=== PATIENT | female | born 1995 | race Caucasian/White ===

== ENCOUNTER → 2024-09-11 08:41 | Outpatient (CLI) | payer OTHER, SELFPAY ==
[2024-09-11 09:24] LABS: Influenza A - CEPHEID Flu A NEGATIVE (NEGATIVE); Influenza B - CEPHEID Flu B NEGATIVE (NEGATIVE); Respiratory Syncytial Virus Negative (Negative)
[2024-09-11 09:26] LABS: COVID-19 CEPHEID 4-PLEX PCR Negative (Negative)
== END ==
PROVIDERS: PCP Family Medicine; Visit Provider Registered Nurse
DX: R05.1 Acute cough (principal)
CPT/HCPCS: 0241U

== ENCOUNTER → 2024-09-11 08:47 | Outpatient (CLI) | payer OTHER, SELFPAY ==
--- NOTE | 2024-09-11 08:48 | DI.RAD.S_ITS ---
PROCEDURE: XR CHEST 2V INDICATIONS: Wheezing TECHNIQUE: 2 views of the chest were acquired. COMPARISON: None. FINDINGS: Surgical changes and devices: None. Lungs and pleura: Moderate right pleural effusion with right basilar atelectasis or consolidation. Left lung is clear. No pneumothorax. Mediastinum: Mediastinal contours are normal. Heart size is normal. Bones and chest wall: No suspicious bony abnormalities. Soft tissues appear unremarkable. IMPRESSION: Moderate right pleural effusion with right basilar atelectasis or consolidation. Approved by: Bart Trejo M.D. on 09/11/2024 at 9:02
== END ==
PROVIDERS: PCP Family Medicine; Referring Provider Registered Nurse; Visit Provider Registered Nurse
DX: J90 Pleural effusion, not elsewhere classified (principal); R06.2 Wheezing; R05.1 Acute cough
CPT/HCPCS: 0241U; 71046

== ENCOUNTER 2024-09-11 09:02 | Inpatient (IN) | payer OTHER, SELFPAY ==
[2024-09-11] VITALS (17 sets, daily range): BP systolic 111–134; BP diastolic 58–82; PULSE 96–110; RESP 12–22; TEMP 36.7–37.4; O2SAT 94–99; BMI 21.6
--- NOTE | 2024-09-11 09:47 | EKG_ITS ---
[address] [address] Test Date: 2024-09-11 Pat Name: Jerri Ruffin Department: [facility] Room: Gender: Female [employer]: junior : 1995 Requested By: Order Number: [id number] Reading MD: Vincent Lino Measurements Intervals [place] Rate: 100 P: 66 SD: 152 QRS: 78 QRSD: 84 T: 40 QT: 344 QTc: 443 Interpretive Statements Normal sinus rhythm Possible Lateral infarct , age undetermined Electronically Signed On 09-17-2024 18:54:05 PDT by Vincent Lino
[2024-09-11 09:54] LABS: Add Manual Diff / Slide Review NO; Basophils Absolute Auto 0 /uL (0-100); Basophils Percent Auto 0.1 % (0-2); Eosinophils Absolute Auto 100 /uL (0-450); Hematocrit 36.1 % (36-46); Hemoglobin 12.1 g/dL (12.0-16.0); Lymphocytes Absolute Auto 400 /uL (1100-4500); Lymphocytes Percent Auto 6.7 % (25-40); Mean Corpuscular HGB Conc 33.6 % (30-36); Mean Corpuscular Hemoglobin 29.4 PG (26-34); Mean Corpuscular Volume 87.5 fL (80-100); Monocytes Absolute Auto 600 /uL (0-900); Monocytes Percent Auto 9.6 % (3-14); Neutrophils Absolute Auto 5500 /uL (1500-7000); Neutrophils Percent Auto 82.6 % (50-75); Platelet Count 246 X10^3/uL (150-400); Red Blood Cell Count 4.12 X10^6/uL (4.0-5.2); Red Cell Distribution Width 12.9 % (11.6-14.8); White Blood Cell Count 6.6 X10^3/uL (4.5-11.0)
--- NOTE | 2024-09-11 09:55 | PC.NURSE ---
Pt reports initially feeling sob when laying back at night but states this gets better. Diminished lung sounds on right. upper left lobe crackles? Pt reports she has been sick x1 week. States she does not think she has been around anyone sick. Pt reprots she felt feverish on Tuesday.
[2024-09-11 09:59] LABS: Alanine Aminotransferase 24 IU/L (<35); Albumin 4.1 g/dL (3.5-5.0); Albumin Globulin Ratio 1.2 (1.0-2.8); Alkaline Phosphatase 36 U/L (38-126); Aspartate Aminotransferase 36 IU/L (14-36); Bilirubin Total 0.5 mg/dL (0.2-1.3); Blood Urea Nitrogen 12 mg/dL (7-17); Carbon Dioxide 25 mmol/L (22-32); Chloride 102 mmol/L (98-107); Estimated Glomerular Filt Rate > 60 mL/min (>60); Globulin 3.4 g/dL (1.7-4.1); Glucose 102 mg/dL (70-100); HEMOLYSIS < 15 (0-50); Potassium 4.6 mmol/L (3.4-5.1); Prothrombin Time 11.5 SECONDS (9.4-12.5); Sodium 138 mmol/L (137-145); Total Protein 7.5 g/dL (6.3-8.2)
[2024-09-11 10:11] LABS: NT-proBNP (BNP-Adult 18+) 40 pg/mL (<125); Troponin I < 0.012 ng/mL (0.01-0.034)
--- NOTE | 2024-09-11 10:23 | DI.CT.S_ITS ---
PROCEDURE: CT ANGIO CHEST PE PROTOCOL INDICATIONS: chest pain, R pleural effusion TECHNIQUE: After the administration of intravenous contrast, 2 mm thick sections acquired from the pulmonary apices to the posterior costophrenic angles. 3-dimensional maximum intensity projection (MIP) coronal and sagittal reformats were then acquired through the thorax. For radiation dose reduction, the following was used: automated exposure control, adjustment of mA and/or kV according to patient size. COMPARISON: [facility], CR, XR CHEST 2V, 09/11/2024, 8:44. FINDINGS: Image quality: Diagnostic. Pulmonary arteries: Pulmonary arteries are normal in size, and demonstrate no intraluminal filling defects to suggest central pulmonary embolism. Lower Neck: No enlarged lymph nodes. Thyroid: No thyroid nodules which require sonographic follow up, per consensus guidelines. Axillae: No enlarged lymph nodes. Chest Wall: Unremarkable. Bones: Unremarkable. Lungs and Pleura: Dense consolidations in the right middle and lower lobes. Trace pleural fluid. Left lung is clear. No suspicious pulmonary nodule. Heart: Heart size is normal. No pericardial effusion. Thoracic Vessels: No aortic aneurysm. Mediastinum and Pretty: No enlarged lymph nodes. Esophagus: No wall thickening. No hiatal hernia. Upper Abdomen: Visualized upper abdomen solid organs and bowel loops appear normal. IMPRESSION: 1. No acute pulmonary embolus. 2. Large dense consolidations in the right middle and lower lobes are suspicious for pneumonia. Trace parapneumonic effusion. Recommend radiographic follow-up to resolution. Approved by: Bart Trejo M.D. on 09/11/2024 at 11:12
[2024-09-11 11:15] LABS: Bacteria Urine Occasional (0-1); Culture Indicated Urine Cult Not Indicated; RBC Urine 0-1/HPF (0-5/HPF); Squamous Epithelial Cell Urine None Seen (0-5/HPF); Urine Volume 10mL (spun); WBC Urine 0-1/HPF (0-5/HPF)
[2024-09-11] MEDS: AZITHROMYCIN 250 MG TABLET 500 MG PO (12:02)
[2024-09-11] MEDS: cefTRIAXone 1,000 MG in SODIUM CHLORIDE 0.9% 100 ML 200 MG IV ×2 (12:03→13:23)
--- NOTE | 2024-09-11 12:59 | ED.SOB ---
HPI - SOB/Dyspnea General Chief Complaint: Shortness of Breath/Dyspnea Stated Complaint: SOB , Cough Time Seen by Provider: 09/11/24 10:14 Source: patient Mode of arrival: Family Vehicle History of Present Illness HPI Narrative: 28-year-old female with 10 days duration of cough that is productive, she takes the sputum but did not look at the sputum, does not taste like blood. Increasing shortness of breath. No chest pain. Denies painful or frequent urination. Denies abdominal pain, nausea, vomiting. Does not believe that she would be . No current vaginal bleeding. Related Data Previous Rx's Medication Instructions Recorded albuterol sulfate 90 mcg/actuation 2 puff inhalation Q6H PRN 09/03/24 aerosol inhaler shortness of breath or wheezing #6.7 grams inhalational spacing device #1 ea 09/11/24 (BreatheRite MDI Spacer) Allergies Allergy/AdvReac Type Severity Reaction Status Date / Time No Known Drug Allergies Allergy Verified 09/11/24 08:40 Patient History Social History household members: spouse Smoking Status: Never smoker alcohol intake: current Smoking Status: Never smoker Exam Narrative Exam Narrative: GENERAL: Well-developed patient, in mild distress. HEAD: Atraumatic. Normocephalic. EYES: Pupils equal round and reactive. Extraocular motions intact. No scleral icterus. No injection or drainage. ENT: Nose without bleeding, purulent drainage. Throat without erythema, tonsillar hypertrophy or exudate. Airway patent. NECK: Trachea midline. Non tender CARDIOVASCULAR: Regular rate and rhythm without murmurs, gallops, or rubs. RESPIRATORY: Diminished breath sounds right base. Speaks in full sentences, no retractions. No wheeze. GASTROINTESTINAL: Abdomen soft, non-tender, nondistended. EXTREMITIES: No edema or joint tenderness. BACK: Nontender without deformity or crepitance. No flank tenderness. NEURO: AOx3. Motor functions grossly nonfocal SKIN: No rash or erythema of visible areas Initial Vital Signs Initial Vital Signs: Vital Signs Temperature 98.7 F 09/11/24 09:12 Pulse Rate 110 H 09/11/24 09:12 Respiratory Rate 22 09/11/24 09:12 Blood Pressure 134/82 09/11/24 09:12 Pulse Oximetry 95 09/11/24 09:12 Oxygen Delivery Method Room Air 09/11/24 09:12 Course Orders Ordered: Acetaminophen (Acetaminophen 325 Mg Tablet) 650 mg PO Q6H PRN PRN Reason: Fever/Mild Pain (1-3) Last Admin: 09/11/24 14:56 Dose: 650 mg Documented By: MARY Ceftriaxone Sodium 2,000 mg/ (Sodium Chloride) 100 mls @ 200 mls/hr IV Q24H CAREY Metronidazole (Metronidazole 500 Mg Tablet) 500 mg PO TID CAREY Last Admin: 09/11/24 21:26 Dose: 500 mg Documented By: Admin: 09/11/24 16:38 Dose: 500 mg Documented By: JOSSUEV Naloxone HCl (Naloxone 0.4 Mg/Ml Vial) 0.2 mg IV Q2MIN PRN PRN Reason: Opiate Reversal Ondansetron HCl (Ondansetron 4 Mg/2 Ml Inj) 4 mg IV Q8HR PRN PRN Reason: Nausea And Vomiting Discontinued Medications Azithromycin (Azithromycin 250 Mg Tablet) 500 mg PO NOW ONE Stop: 09/11/24 11:39 Last Admin: 09/11/24 12:02 Dose: 500 mg Documented By: NICOLE Ceftriaxone Sodium 1,000 mg/ (Sodium Chloride) 100 mls @ 200 mls/hr IV NOW ONE Stop: 09/11/24 11:39 Last Infusion: 09/11/24 12:33 Dose: Infused Documented By: Admin: 09/11/24 12:03 Dose: 200 mls/hr Documented By: NICOLE Ceftriaxone Sodium 1,000 mg/ (Sodium Chloride) 100 mls @ 200 mls/hr IV NOW ONE Stop: 09/11/24 13:04 Last Infusion: 09/11/24 14:06 Dose: Infused Documented By: Admin: 09/11/24 13:23 Dose: 200 mls/hr Documented By: NICOLE Sodium Chloride (Normal Saline 0.9%) 1,000 mls @ 75 mls/hr IV CONT CAREY Last Admin: 09/12/24 04:25 Dose: 75 mls/hr Documented By: Infusion: 09/12/24 04:16 Dose: Infused Documented By: Admin: 09/11/24 14:56 Dose: 75 mls/hr Documented By: MARY Metronidazole (Metronidazole 500 Mg Tablet) 500 mg PO NOW ONE Stop: 09/11/24 13:04 Last Admin: 09/11/24 13:23 Dose: 500 mg Documented By: NICOLE Vital Signs Vital signs: Vital Signs - 8 hr 09/11/24 09:12 Temperature 98.7 F Pulse Rate 110 H Respiratory Rate 22 Blood Pressure 134/82 Pulse Oximetry 95 Oxygen Delivery Method Room Air MDM - SOB/Dyspnea Lab Data Attestation: I reviewed the patient's lab results. Lab results narrative: White blood cell count 6600, hemoglobin 12.1, platelets adequate. Glucose 102 normal. Basic metabolic panel otherwise negative. Urine hCG negative. Urine dip negative. Liver functions and troponin negative. BNP 40 not elevated. 09/11/24 09:38 09/12/24 04:33 Labs: Lab Results 09/11/24 09/11/24 Range/Units 09:38 10:39 WBC 6.6 (4.5-11.0) X10^3/uL RBC 4.12 (4.0-5.2) X10^6/uL Hgb 12.1 (12.0-16.0) g/dL Hct 36.1 (36-46) % MCV 87.5 (80-100) fL MCH 29.4 (26-34) PG MCHC 33.6 (30-36) % RDW 12.9 (11.6-14.8) % Plt Count 246 (150-400) X10^3/uL Neut % (Auto) 82.6 H (50-75) % Lymph % (Auto) 6.7 L (25-40) % [place] % (Auto) 9.6 (3-14) % Eos % (Auto) 1.0 L (2-4) % Baso % (Auto) 0.1 (0-2) % Neut # (Auto) 5500 (5118-2907) /uL Lymph # (Auto) 400 L (8041-9258) /uL [place] # (Auto) 600 (0-900) /uL Eos # (Auto) 100 (0-450) /uL Baso # (Auto) 0 (0-100) /uL PT 11.5 (9.4-12.5) SECONDS INR 1.0 (0.9-1.3) Sodium 138 (137-145) mmol/L Potassium 4.6 (3.4-5.1) mmol/L Chloride 102 (98-107) mmol/L Carbon Dioxide 25 (22-32) mmol/L BUN 12 (7-17) mg/dL Creatinine 0.63 (0.52-1.04) mg/dL Estimated GFR > 60 (>60) mL/min BUN/Creatinine Ratio 19.0 (6-22) Glucose 102 H (70-100) mg/dL Lactate 1.0 (0.7-2.1) mmol/L Calcium 9.0 (8.4-10.2) mg/dL Total Bilirubin 0.5 (0.2-1.3) mg/dL AST 36 (14-36) IU/L ALT 24 (<35) IU/L Alkaline Phosphatase 36 L (38-126) U/L Troponin I < 0.012 (0.01-0.034) ng/mL C-Reactive Protein 14.4 H (<1.0) mg/dL NT-Pro-B Natriuret Pep 40 (<125) pg/mL Total Protein 7.5 (6.3-8.2) g/dL Albumin 4.1 (3.5-5.0) g/dL Globulin 3.4 (1.7-4.1) g/dL Albumin/Globulin Ratio 1.2 (1.0-2.8) Procalcitonin 0.077 (<0.5) ng/mL Urine RBC 0-1/hpf (0-5/HPF) Urine WBC 0-1/hpf (0-5/HPF) Ur Squamous Epith Cells None seen (0-5/HPF) Urine Bacteria Occasional (0-1) (None) Ur Culture Indicated? Cult not indicated Vol Urine Centrifuged 10ml (spun) Point of Care Testing Test Results Negative Urine Dip Bedside Urine Glucose Negative Bedside Urine Bilirubin - Negative Bedside Urine Ketone - Negative Urine Specific [place] 1.010 Bedside Urine Occult Blood - Negative Bedside Urine pH 7.5 Bedside Urine Protein - Negative Bedside Urine Urobilinogen - Negative Bedside Urine Nitrite - Negative Bedside Urine Leukocytes - Negative Esterase ECG Data Attestation: I personally reviewed and interpreted this ECG as follows: Interpretation: Sinus tachycardia with rate 100, no obvious ST segment elevation or depression changes. [place] 152, QRS 84, QTC 443. MDM Narrative Medical decision making narrative: 28-year-old female with 9 days duration productive cough, sputum not visualized, increasing shortness of breath. No chest pain. Presented to clinic today, chest x-ray showed right pleural effusion, COVID/flu swab was negative, sent here for further evaluation. Sinus tachycardia noted. EKG done from triage, sinus tachycardia narrow complex, no acute ischemic changes. Chest x-ray report from clinic earlier today located. Impression: ?moderate right pleural effusion with right basilar atelectasis or consolidation. See radiology report, for study read as an outpatient. Renal function adequate. CTA chest ordered. CTA chest showed no pulmonary embolus, does show right middle lobe and right lower lobe infiltrative changes, with parapneumonic effusion, see radiology report. No large fluid area described that seemed amenable by description for obvious emergent thoracentesis sampling. Blood cultures, IV ceftriaxone, oral azithromycin. Case discussed with hospitalist Dr. Jay who reviewed imaging studies, he would like addition of oral metronidazole which is it additionally ordered. He would like a 2nd g of ceftriaxone additionally ordered. He accepts patient for admission to inpatient service. Patient is agreeable to this plan. Additional IV ceftriaxone 1000 mg given, oral Flagyl 500 mg given, per hospitalist request Critical Care Time Critical Care Time Critical Care Time: Yes Total Critical Care Time: 35 Attestation: The high probability of a clinically significant, sudden or life threatening deterioration of the [cardiopulmonary] system(s) required my full and direct attention, intervention and personal management. The aggregate critical care time was [35] minutes. This time is in addition to time spent performing reported procedures but includes the following: [x] Data Review and interpretation [x] Patient assessment and monitoring of vital signs [x] Documentation [x] Medication orders and management Discharge Plan Departure Patient Disposition: Admitted As Inpatient Clinical Impression: Pneumonia, Tachycardia, Parapneumonic effusion Admit Date/Time: 09/11/24 13:08 Admit Provider: Cresencio Jay
[2024-09-11] MEDS: metroNIDAZOLE 500 MG TABLET PO ×3 (13:23→21:26)
--- NOTE | 2024-09-11 14:03 | P.HP_ITS ---
History of Present Illness History of Present Illness Date Patient Seen: 09/11/24 Time Patient Seen: 14:03 Chief complaint: SOB , Cough Narrative: Chief complaint: Fever chills productive cough and shortness of breath and dyspnea on exertion secondary to large consolidated dense right middle and right lower lobe pneumonia History of present illness: Patient began having productive cough (did not look as sputum) malaise and sweats with feeling feverish about 10 days prior to admission the end of August. Where she was seen in the walk-in clinic evaluated clinically and given an albuterol MDI with her history of exercise-induced asthma. Symptoms did not improve in fact worsened patient did report return this morning to the clinic where chest x-ray was performed and showed a large right-sided middle and lower lobe opacity. Patient was sent to the emergency department where a follow-up CT scan was performed that demonstrated a large consolidated right middle and right lower lobe pneumonia and a somewhat smaller subpulmonic effusion (IMPRESSION: ) 1. No acute pulmonary embolus. 2. Large dense consolidations in the right middle and lower lobes are suspicious for pneumonia. Trace parapneumonic effusion. Recommend radiographic follow-up to resolution. White count 6.6. The rest of the hemogram and comprehensive metabolic profile is completely unremarkable COVID influenza a and B and RSV screening is negative, blood cultures obtained and an order for sputum with Gram stain Review of systems: Patient did mentioned diminished appetite but no food aversion No chest pain palpitations No abdominal pain nausea vomiting diarrhea No urinary symptoms The paresthesia or paresis Physical exam: Very healthy young athletic appearing female HEENT unremarkable new line neck no thyromegaly no JVD No adenopathy in the neck head axilla supraclavicular a periumbilical Lungs with absent sound transmission anterior posteriorly on the right lower half of the lung serrano Abdomen nontender no splenomegaly Extremities no cyanosis clubbing edema Neurological nonfocal Assessment and plan: Very dense large consolidated pneumonia. Unclear etiology patient has no recollection of waking up choking such as aspiration has no significant risk factors no sick contacts [facility] Social History Smoking Status: Never smoker Meds Home Medications and Allergies Home Medications Medication Instructions Recorded Confirmed Type albuterol sulfate 90 mcg/actuation 2 puff inhalation Q6H PRN 09/03/24 09/11/24 Rx aerosol inhaler shortness of breath or wheezing #6.7 grams inhalational spacing device #1 ea 09/11/24 09/11/24 Rx (BreatheRite MDI Spacer) Allergies Allergy/AdvReac Type Severity Reaction Status Date / Time No Known Drug Allergies Allergy Verified 09/11/24 08:40 Exam Vital Signs (past 8 hours): - 09/11/24 09:12 Temperature 98.7 F Pulse Rate 110 H Respiratory Rate 22 Blood Pressure 134/82 Pulse Oximetry 95 Oxygen Delivery Method Room Air Oxygen Delivery Method Room Air Objective Labs 09/11/24 09:38 09/11/24 09:38 Labs: Laboratory Results - last 24 hr 09/11/24 09/11/24 09:38 10:39 WBC 6.6 RBC 4.12 Hgb 12.1 Hct 36.1 MCV 87.5 MCH 29.4 MCHC 33.6 RDW 12.9 Plt Count 246 Neut % (Auto) 82.6 H Lymph % (Auto) 6.7 L [place] % (Auto) 9.6 Eos % (Auto) 1.0 L Baso % (Auto) 0.1 Neut # (Auto) 5500 Lymph # (Auto) 400 L [place] # (Auto) 600 Eos # (Auto) 100 Baso # (Auto) 0 PT 11.5 INR 1.0 Sodium 138 Potassium 4.6 Chloride 102 Carbon Dioxide 25 BUN 12 Creatinine 0.63 Estimated GFR > 60 BUN/Creatinine Ratio 19.0 Glucose 102 H Lactate 1.0 Calcium 9.0 Total Bilirubin 0.5 AST 36 ALT 24 Alkaline Phosphatase 36 L Troponin I < 0.012 NT-Pro-B Natriuret Pep 40 Total Protein 7.5 Albumin 4.1 Globulin 3.4 Albumin/Globulin Ratio 1.2 Urine RBC 0-1/hpf Urine WBC 0-1/hpf Ur Squamous Epith Cells None seen Urine Bacteria Occasional (0-1) Ur Culture Indicated? Cult not indicated Vol Urine Centrifuged 10ml (spun) Assessment & Plan Time-Based Coding :: [TOTAL MINUTES] spent with patient and on the chart (including review of chart, obtaining history, exam, reviewing outside data, placing orders, documenting exam and treatment plan, and counseling patient) on [DATE].
--- NOTE | 2024-09-11 14:36 | PC.NURSE ---
Reassess no change
[2024-09-11 14:45] LABS: C-Reactive Protein Quant 14.4 mg/dL (<1.0)
[2024-09-11 14:49] LABS: Procalcitonin 0.077 ng/mL (<0.5)
[2024-09-11] MEDS: SODIUM CHLORIDE 0.9% 1,000 ML 75 ML IV (14:56)
[2024-09-11] MEDS: ACETAMINOPHEN 325 MG TABLET 650 MG PO (14:56)
[2024-09-11 17:54] LABS: MRSA (Nasal) PCR NOT DETECTED (Not Detect)
[2024-09-12] VITALS (9 sets, daily range): BP systolic 108–122; BP diastolic 57–74; PULSE 89–114; RESP 16–20; TEMP 36.4–36.9; O2SAT 92–100
[2024-09-12] MEDS: SODIUM CHLORIDE 0.9% 1,000 ML 75 ML IV (04:25)
[2024-09-12 05:41] LABS: Alanine Aminotransferase 19 IU/L (<35); Albumin 3.5 g/dL (3.5-5.0); Albumin Globulin Ratio 1.1 (1.0-2.8); Alkaline Phosphatase 34 U/L (38-126); Aspartate Aminotransferase 32 IU/L (14-36); BUN Creatinine Ratio 17.2 (6-22); Bilirubin Total 0.4 mg/dL (0.2-1.3); Blood Urea Nitrogen 11 mg/dL (7-17); Calcium 8.6 mg/dL (8.4-10.2); Carbon Dioxide 22 mmol/L (22-32); Chloride 104 mmol/L (98-107); Estimated Glomerular Filt Rate > 60 mL/min (>60); Globulin 3.1 g/dL (1.7-4.1); Glucose 93 mg/dL (70-100); HEMOLYSIS < 15 (0-50); Potassium 3.9 mmol/L (3.4-5.1); Sodium 137 mmol/L (137-145); Total Protein 6.6 g/dL (6.3-8.2)
--- NOTE | 2024-09-12 06:00 | DI.RAD.S_ITS ---
PROCEDURE: XR CHEST 2V INDICATIONS: pna TECHNIQUE: 2 views of the chest were acquired. COMPARISON: [facility], CR, XR CHEST 2V, 09/11/2024, 8:44. FINDINGS: Heart, mediastinum and pulmonary vascular: Heart is normal in size and configuration. Mediastinum is unremarkable. Pulmonary vascular is normal. Lungs: Large consolidated infiltrates dominating the right middle and lower lobes with moderate right pleural effusion are unchanged from yesterday Bones and soft tissues: Normal IMPRESSION: Large consolidated pneumonia throughout the right middle and lower lobes with moderate right pleural effusion that unchanged Dictated by: Bart Aparicio M.D. on 09/12/2024 at 10:09 Approved by: Bart Aparicio M.D. on 09/12/2024 at 10:10
[2024-09-12] MEDS: metroNIDAZOLE 500 MG TABLET PO ×3 (08:19→20:58)
[2024-09-12] MEDS: AZITHROMYCIN 250 MG TABLET 500 MG PO (10:10)
[2024-09-12 11:32] LABS: C-Reactive Protein Quant 11.8 mg/dL (<1.0)
--- NOTE | 2024-09-12 11:53 | CM.DANOTE ---
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 per provider in morning rounds, pt likely to be here a few days due to severity of the pneumonia per x-ray. repeat chest x-ray today. Per chart/RN, pt on room air, IV abx, and has a bit of a cough. per RN/chart review, likely no CM needs. CM team to alert TCM group at dc. P: anticipate return home with OP f/u recommended. no needs identified per chart review. CM team will continue to follow closely in case any DCP needs arise. ISAIAH Chapa Discharge Planning/Care Management CM Discharge Assessment Start: 09/12/24 11:40 Freq: Status: Active Protocol: Document 09/12/24 11:40 SL (Rec: 09/12/24 11:53 SL Desktop) Discharge Planning Assessment Assigned Directory Assistance Operator ISAIAH Machuca DPOA/Assigned Designee Name spouse, Natty/motherBharti Contact Information [phone] Advance Directives? No Prior Living Arrangements House Household Members spouse Type of transporation used prior to Drives own vehicle admit Independent with ADL's Yes Is patient alert and oriented? Yes Barriers to Discharge No Referrals Initiated None needed Review Status In Process Please Provide Date Initial DC 09/12/24 Assessment Was Performed Next Review Type Continued Stay Review
[2024-09-12] MEDS: cefTRIAXone 2,000 MG in SODIUM CHLORIDE 0.9% 100 ML 200 MG IV (12:47)
--- NOTE | 2024-09-12 12:54 | PM.PN.1 ---
Subjective Subjective Date Patient Seen: 09/12/24 Time Patient Seen: 12:54 Interval history: Chief complaint: Fever chills productive cough and shortness of breath and dyspnea on exertion secondary to large consolidated dense right middle and right lower lobe pneumonia History of present illness: Patient began having productive cough (did not look as sputum) malaise and sweats with feeling feverish about 10 days prior to admission the end of August. Where she was seen in the walk-in clinic evaluated clinically and given an albuterol MDI with her history of exercise-induced asthma. Symptoms did not improve in fact worsened patient did report return this morning to the clinic where chest x-ray was performed and showed a large right-sided middle and lower lobe opacity. Patient was sent to the emergency department where a follow-up CT scan was performed that demonstrated a large consolidated right middle and right lower lobe pneumonia and a somewhat smaller subpulmonic effusion (IMPRESSION: ) 1. No acute pulmonary embolus. 2. Large dense consolidations in the right middle and lower lobes are suspicious for pneumonia. Trace parapneumonic effusion. Recommend radiographic follow-up to resolution. White count 6.6. The rest of the hemogram and comprehensive metabolic profile is completely unremarkable COVID influenza a and B and RSV screening is negative, blood cultures obtained and an order for sputum with Gram stain Hospital course: 09/12: Patient feels a little better still on room air oxygen coughing up yellow sputum pulmonary exam is unchanged from yesterday Review of systems: Patient did mentioned diminished appetite but no food aversion No chest pain palpitations No abdominal pain nausea vomiting diarrhea No urinary symptoms The paresthesia or paresis Physical exam: Very healthy young athletic appearing female HEENT unremarkable new line neck no thyromegaly no JVD No adenopathy in the neck head axilla supraclavicular a periumbilical Lungs with absent sound transmission anterior posteriorly on the right lower half of the lung serrano Abdomen nontender no splenomegaly Extremities no cyanosis clubbing edema Neurological nonfocal Assessment and plan: Very dense large consolidated pneumonia. Unclear etiology patient has no recollection of waking up choking such as aspiration has no significant risk factors no sick contacts Continue ceftriaxone 2 g IV daily azithromycin 500 mg p.o. daily and metronidazole 500 mg t.i.d. incentive spirometry and flutter valve Spent 35 minutes in evaluation of this patient with half of that in the room with the patient and mother Exam Vital Signs (past 8 hours): - 09/12/24 05:43 09/12/24 08:00 09/12/24 09:00 Temperature 98.1 F 97.7 F Pulse Rate 107 H 89 Respiratory Rate 16 16 Blood Pressure 108/72 122/73 Pulse Oximetry 94 96 96 Oxygen Delivery Method Room Air Oxygen Flow Rate 0 0 Oxygen Delivery Method Room Air Oxygen Flow Rate 0 Objective Labs 09/11/24 09:38 09/12/24 04:33 Labs: Laboratory Results - last 24 hr 09/11/24 09/11/24 09/12/24 09:38 16:24 04:33 Sodium 137 Potassium 3.9 Chloride 104 Carbon Dioxide 22 BUN 11 Creatinine 0.64 Estimated GFR > 60 BUN/Creatinine Ratio 17.2 Glucose 93 Calcium 8.6 Total Bilirubin 0.4 AST 32 ALT 19 Alkaline Phosphatase 34 L C-Reactive Protein 14.4 H Total Protein 6.6 Albumin 3.5 Globulin 3.1 Albumin/Globulin Ratio 1.1 Procalcitonin 0.077 Nasal Screen MRSA (PCR) Not detected 09/12/24 04:55 Sodium Potassium Chloride Carbon Dioxide BUN Creatinine Estimated GFR BUN/Creatinine Ratio Glucose Calcium Total Bilirubin AST ALT Alkaline Phosphatase C-Reactive Protein 11.8 H Total Protein Albumin Globulin Albumin/Globulin Ratio Procalcitonin Nasal Screen MRSA (PCR) PFSH Social History household members: spouse Smoking Status: Never smoker alcohol intake: current Assessment & Plan Time-Based Coding :: [TOTAL MINUTES] spent with patient and on the chart (including review of chart, obtaining history, exam, reviewing outside data, placing orders, documenting exam and treatment plan, and counseling patient) on [DATE].
[2024-09-12] MEDS: ALBUTEROL 2.5 MG/3 ML NEB (ADULT) INH ×2 (16:49→19:21)
[2024-09-13] VITALS (11 sets, daily range): BP systolic 106–115; BP diastolic 56–66; PULSE 76–93; RESP 16–18; TEMP 36.2–36.6; O2SAT 92–100
[2024-09-13 05:33] LABS: Alanine Aminotransferase 18 IU/L (<35); Albumin 3.8 g/dL (3.5-5.0); Albumin Globulin Ratio 1.2 (1.0-2.8); Alkaline Phosphatase 33 U/L (38-126); Aspartate Aminotransferase 28 IU/L (14-36); BUN Creatinine Ratio 17.7 (6-22); Bilirubin Total 0.4 mg/dL (0.2-1.3); Blood Urea Nitrogen 11 mg/dL (7-17); Calcium 9.1 mg/dL (8.4-10.2); Carbon Dioxide 24 mmol/L (22-32); Chloride 104 mmol/L (98-107); Estimated Glomerular Filt Rate > 60 mL/min (>60); Globulin 3.1 g/dL (1.7-4.1); Glucose 104 mg/dL (70-100); HEMOLYSIS < 15 (0-50); Potassium 4.1 mmol/L (3.4-5.1); Sodium 137 mmol/L (137-145); Total Protein 6.9 g/dL (6.3-8.2)
[2024-09-13] MEDS: AZITHROMYCIN 250 MG TABLET 500 MG PO (08:27)
[2024-09-13] MEDS: metroNIDAZOLE 500 MG TABLET PO (08:27)
[2024-09-13] MEDS: ALBUTEROL 2.5 MG/3 ML NEB (ADULT) INH ×3 (09:42→19:41)
--- NOTE | 2024-09-13 12:50 | CM.DPC ---
DCP Cont: Per MD, pt on room air and on day 3 of 5 for IV-Abx course and then will likely d/c home with no identified barriers to discharge. ISAIAH Ragland
[2024-09-13] MEDS: cefTRIAXone 2,000 MG in SODIUM CHLORIDE 0.9% 100 ML 200 MG IV (13:17)
[2024-09-13] MEDS: diphenhydrAMINE 25 MG TABLET PO (13:49)
--- NOTE | 2024-09-13 17:42 | PC.NURSE ---
Day shift: Patient told this RN this afternoon that her hands and feet started to itch and she had mild swelling around her knuckles and a few scattered hives on the tops of her feet. She denies nausea, swelling of lips or tongue, or feeling flushed. Patient reported symptoms before her dose of IV ceftriaxone. Notified MD Jay. D/c'ed PO flagyl and azithromyacin per MD's instructions. Also gave patient PO benadryl, which patient stated helped a lot. She reports no further itching and hives have completely resolved by dinner time. Will continue to monitor.
--- NOTE | 2024-09-13 17:51 | PM.PN.1 ---
Subjective Subjective Date Patient Seen: 09/13/24 Interval history: Chief complaint: Fever chills productive cough and shortness of breath and dyspnea on exertion secondary to large consolidated dense right middle and right lower lobe pneumonia History of present illness: Patient began having productive cough (did not look as sputum) malaise and sweats with feeling feverish about 10 days prior to admission the end of August. Where she was seen in the walk-in clinic evaluated clinically and given an albuterol MDI with her history of exercise-induced asthma. Symptoms did not improve in fact worsened patient did report return this morning to the clinic where chest x-ray was performed and showed a large right-sided middle and lower lobe opacity. Patient was sent to the emergency department where a follow-up CT scan was performed that demonstrated a large consolidated right middle and right lower lobe pneumonia and a somewhat smaller subpulmonic effusion (IMPRESSION: ) 1. No acute pulmonary embolus. 2. Large dense consolidations in the right middle and lower lobes are suspicious for pneumonia. Trace parapneumonic effusion. Recommend radiographic follow-up to resolution. White count 6.6. The rest of the hemogram and comprehensive metabolic profile is completely unremarkable COVID influenza a and B and RSV screening is negative, blood cultures obtained and an order for sputum with Gram stain Hospital course: 09/12: Patient feels a little better still on room air oxygen coughing up yellow sputum pulmonary exam is unchanged from yesterday 09/13: Patient feels better is not mobilizing as much secretions examination today shows some air sounds and some better sound transmission in the right lung base. Patient had hives in hands and feet after dose of azithromycin and metronidazole these were discontinued Review of systems: Patient did mentioned diminished appetite but no food aversion No chest pain palpitations No abdominal pain nausea vomiting diarrhea No urinary symptoms The paresthesia or paresis Physical exam: Very healthy young athletic appearing female HEENT unremarkable new line neck no thyromegaly no JVD No adenopathy in the neck head axilla supraclavicular a periumbilical Lungs with returning sound transmission anterior posteriorly on the right lower half of the lung serrano Abdomen nontender no splenomegaly Extremities no cyanosis clubbing edema Neurological nonfocal Assessment and plan: Very dense large consolidated pneumonia. Unclear etiology patient has no recollection of waking up choking such as aspiration has no significant risk factors no sick contacts Continue ceftriaxone 2 g IV daily Discontinue azithromycin 500 mg p.o. daily and metronidazole 500 mg t.i.d. due to hives new line Continue incentive spirometry and flutter valve Spent 35 minutes in evaluation of this patient with half of that in the room with the patient and mother Exam Vital Signs (past 8 hours): - 09/13/24 09:54 09/13/24 14:00 09/13/24 14:22 Temperature 97.7 F Pulse Rate 79 93 H Respiratory Rate 16 16 Blood Pressure 111/63 Pulse Oximetry 97 93 100 Oxygen Delivery Method Room Air Room Air Oxygen Flow Rate 0 0 09/13/24 17:00 Temperature Pulse Rate Respiratory Rate Blood Pressure Pulse Oximetry 100 Oxygen Delivery Method Room Air Oxygen Flow Rate Fraction of Inspired Oxygen 21 SaO2/FiO2 Ratio 447 Oxygen Delivery Method Room Air Oxygen Flow Rate 0 Objective Labs 09/11/24 09:38 09/13/24 04:35 Labs: Laboratory Results - last 24 hr 09/13/24 04:35 Sodium 137 Potassium 4.1 Chloride 104 Carbon Dioxide 24 BUN 11 Creatinine 0.62 Estimated GFR > 60 BUN/Creatinine Ratio 17.7 Glucose 104 H Calcium 9.1 Total Bilirubin 0.4 AST 28 ALT 18 Alkaline Phosphatase 33 L Total Protein 6.9 Albumin 3.8 Globulin 3.1 Albumin/Globulin Ratio 1.2 PFSH Social History household members: spouse Smoking Status: Never smoker alcohol intake: current Assessment & Plan Time-Based Coding :: [TOTAL MINUTES] spent with patient and on the chart (including review of chart, obtaining history, exam, reviewing outside data, placing orders, documenting exam and treatment plan, and counseling patient) on [DATE].
[2024-09-14 02:00] VITALS: BP 110/63; PULSE 81; RESP 18; TEMP 36.2; O2SAT 96
[2024-09-14 06:00] VITALS: O2SAT 97
[2024-09-14 06:21] LABS: Add Manual Diff / Slide Review NO; Basophils Absolute Auto 0 /uL (0-100); Basophils Percent Auto 0.2 % (0-2); Eosinophils Absolute Auto 100 /uL (0-450); Eosinophils Percent Auto 2.2 % (2-4); Hematocrit 37.8 % (36-46); Hemoglobin 12.9 g/dL (12.0-16.0); Lymphocytes Absolute Auto 1100 /uL (1100-4500); Lymphocytes Percent Auto 18.5 % (25-40); Mean Corpuscular HGB Conc 34.1 % (30-36); Mean Corpuscular Hemoglobin 29.3 PG (26-34); Mean Corpuscular Volume 85.8 fL (80-100); Monocytes Absolute Auto 700 /uL (0-900); Monocytes Percent Auto 11.7 % (3-14); Neutrophils Absolute Auto 4100 /uL (1500-7000); Neutrophils Percent Auto 67.4 % (50-75); Platelet Count 357 X10^3/uL (150-400); Red Cell Distribution Width 12.7 % (11.6-14.8); White Blood Cell Count 6.1 X10^3/uL (4.5-11.0)
[2024-09-14 06:28] LABS: Alanine Aminotransferase 28 IU/L (<35); Albumin 4.1 g/dL (3.5-5.0); Albumin Globulin Ratio 1.3 (1.0-2.8); Alkaline Phosphatase 31 U/L (38-126); Aspartate Aminotransferase 46 IU/L (14-36); BUN Creatinine Ratio 17.9 (6-22); Bilirubin Total 0.4 mg/dL (0.2-1.3); Blood Urea Nitrogen 12 mg/dL (7-17); Calcium 9.6 mg/dL (8.4-10.2); Carbon Dioxide 25 mmol/L (22-32); Chloride 103 mmol/L (98-107); Estimated Glomerular Filt Rate > 60 mL/min (>60); Globulin 3.2 g/dL (1.7-4.1); Glucose 103 mg/dL (70-100); HEMOLYSIS < 15 (0-50); Potassium 4.4 mmol/L (3.4-5.1); Sodium 138 mmol/L (137-145); Total Protein 7.3 g/dL (6.3-8.2)
--- NOTE | 2024-09-14 08:20 | P.DS_ITS ---
History of Present Illness History of Present Illness Date Patient Seen: 09/14/24 Chief complaint: SOB , Cough Narrative: Chief complaint: Fever chills productive cough and shortness of breath and dyspnea on exertion secondary to large consolidated dense right middle and right lower lobe pneumonia History of present illness: Patient began having productive cough (did not look as sputum) malaise and sweats with feeling feverish about 10 days prior to admission the end of August. Where she was seen in the walk-in clinic evaluated clinically and given an albuterol MDI with her history of exercise-induced asthma. Symptoms did not improve in fact worsened patient did report return this morning to the clinic where chest x-ray was performed and showed a large right-sided middle and lower lobe opacity. Patient was sent to the emergency department where a follow-up CT scan was performed that demonstrated a large consolidated right middle and right lower lobe pneumonia and a somewhat smaller subpulmonic effusion (IMPRESSION: ) 1. No acute pulmonary embolus. 2. Large dense consolidations in the right middle and lower lobes are suspicious for pneumonia. Trace parapneumonic effusion. Recommend radiographic follow-up to resolution. White count 6.6. The rest of the hemogram and comprehensive metabolic profile is completely unremarkable COVID influenza a and B and RSV screening is negative, blood cultures obtained and an order for sputum with Gram stain Hospital course: 09/12-09/14: Patient's clinical condition improved with the reduction and cough initially productive of yellow sputum and now thin clear sputum. Sound transmission and lung sounds returned to the right inferior lung serrano on examination. All cultures were negative. Patient discharged home on 10 days of oral cefdinir. Patient developed hives after a dose each of oral metronidazole and azithromycin. Indicating that there may be a drug allergy to either of these medications but favor metronidazole Review of systems: Patient reports congregational of appetite feeling stronger no fevers or chills No chest pain palpitations No abdominal pain nausea vomiting diarrhea No urinary symptoms The paresthesia or paresis Physical exam: Very healthy young athletic appearing female HEENT unremarkable new line neck no thyromegaly no JVD No adenopathy in the neck head axilla supraclavicular a periumbilical Lungs with improved right lower lung serrano sound and lung found with transmission anterior posteriorly on the right lower half of the lung serrano Abdomen nontender no splenomegaly Extremities no cyanosis clubbing edema Neurological nonfocal Assessment and plan: Very dense large consolidated pneumonia. Unclear etiology patient has no recollection of waking up choking such as aspiration has no significant risk factors no sick contacts responded to community-acquired pathway. We will deescalate to cefdinir 300 mg twice a day for 10 days and albuterol metered-dose inhaler with mucolytics and discharged home and follow up with PCP new line at that time may consider vaccination with Pneumovax Discharge Providers Provider Date of admission: 09/11/24 13:08 Discharge Date: 09/14/24 Primary care physician: Saundra Galloway DO Consults: 09/11/24 13:58 Consult to Pulmonology Routine Comment: Consulting Provider: [facility] Reason for consultation: Large dense consolidated right middle lobe and right lower lobe pneumonia w Discharge provider: Cresencio Jay MD Exam Vital Signs (past 8 hours): - 09/14/24 02:00 09/14/24 02:00 09/14/24 06:00 Temperature 97.1 F L Pulse Rate 81 Respiratory Rate 18 Blood Pressure 110/63 Pulse Oximetry 96 96 97 Oxygen Delivery Method Room Air Room Air Oxygen Flow Rate 0 Fraction of Inspired Oxygen 21 SaO2/FiO2 Ratio 457 Oxygen Delivery Method Room Air Oxygen Flow Rate 0 Objective Labs 09/14/24 05:30 09/14/24 05:30 Labs: Laboratory Results - last 24 hr 09/14/24 05:30 WBC 6.1 RBC 4.40 Hgb 12.9 Hct 37.8 MCV 85.8 MCH 29.3 MCHC 34.1 RDW 12.7 Plt Count 357 Neut % (Auto) 67.4 Lymph % (Auto) 18.5 L [place] % (Auto) 11.7 Eos % (Auto) 2.2 Baso % (Auto) 0.2 Neut # (Auto) 4100 Lymph # (Auto) 1100 [place] # (Auto) 700 Eos # (Auto) 100 Baso # (Auto) 0 Sodium 138 Potassium 4.4 Chloride 103 Carbon Dioxide 25 BUN 12 Creatinine 0.67 Estimated GFR > 60 BUN/Creatinine Ratio 17.9 Glucose 103 H Calcium 9.6 Total Bilirubin 0.4 AST 46 H ALT 28 Alkaline Phosphatase 31 L Total Protein 7.3 Albumin 4.1 Globulin 3.2 Albumin/Globulin Ratio 1.3 PFSH Social History household members: spouse Smoking Status: Never smoker alcohol intake: current Discharge Plan Discharge Plan Patient Disposition: Home Discharge orders & Medications Prescriptions: New cefdinir 300 mg capsule 300 mg PO BID Qty: 20 0RF cefdinir 300 mg capsule 300 mg PO BID Qty: 20 0RF fluconazole [Diflucan] 100 mg tablet 100 mg PO DAILY Qty: 3 0RF Continued albuterol sulfate 90 mcg/actuation HFA aerosol inhaler 2 puff inhalation Q6H PRN (Reason: shortness of breath or wheezing) Qty: 6.7 1RF (DME) BreatheRite MDI Spacer Spacer See Rx Instructions .Route Qty: 1 0RF Rx Instructions: As directed Follow up/Referrals: Saundra Galloway DO [Primary Care Provider] - Visit Report/Discharge Packet Stand Alone Forms: Patient Portal/API Discharge Data Primary Care Provider: Saundra Galloway
[2024-09-14] MEDS: diphenhydrAMINE 25 MG TABLET PO (09:43)
[2024-09-14 10:43] VITALS: O2SAT 99
[2024-09-14] MEDS: ALBUTEROL 2.5 MG/3 ML NEB (ADULT) INH (10:48)
[2024-09-14 10:58] VITALS: PULSE 95; RESP 16; O2SAT 95
--- NOTE | 2024-09-14 11:02 | CM.DPNOTE ---
DCP Continued: Reviewed EMR and team rounds for pt?s medical status. Per hospitalist, pt should be cleared to dc home today. DCP notified Transitional Care Management team of pt's anticipated discharge home, will need follow up with PCP Dr. Hathaway. Plan: Anticipating dc home with spouse to transport. CM Team will continue to follow for coordination of discharge plans. REJI Rivera
[2024-09-14] MEDS: cefTRIAXone 2,000 MG in SODIUM CHLORIDE 0.9% 100 ML 200 MG IV (12:25)
[2024-09-14 12:34] VITALS: BP 113/72; PULSE 110; RESP 16; TEMP 36.5; O2SAT 92
== END 2024-09-14 13:20 | disposition home or self-care (01) | DRG 194 ==
LOC: ED 13:04 → AC 13:08
PROVIDERS: Admitting Provider Internal Medicine; Emergency Provider Emergency Medicine; PCP Family Medicine; Referring Provider Emergency Medicine; Visit Provider Internal Medicine
DX: J18.9 Pneumonia, unspecified organism (principal); J90 Pleural effusion, not elsewhere classified; J45.990 Exercise induced bronchospasm; R00.0 Tachycardia, unspecified
CPT/HCPCS: 0241U; 36415; 71046; 71275; 80053; 81003; 81015; 81025; 83605; 83880; 84145; 84484; 85025; 85610; 86140; 87040; 87081; 87797; 93005; 94640; 94760; 96365; 96366; 99284; 99291; J0696; J7613; Q9967

== ENCOUNTER → 2024-10-16 14:24 | Outpatient (CLI) | payer OTHER, SELFPAY ==
[2024-09-11 14:43] VITALS: BMI 21.6
--- NOTE | 2024-10-16 14:25 | DI.RAD.S_ITS ---
PROCEDURE: XR CHEST 2V INDICATIONS: follow-up/repeat to ensure PNA resolution TECHNIQUE: 2 views of the chest were acquired. COMPARISON: [facility], CR, XR CHEST 2V, 09/12/2024, 6:00. FINDINGS: Heart, mediastinum and pulmonary vascular: Heart is normal in size and configuration. Mediastinum is unremarkable. Pulmonary vascular is normal. Lungs: Complete interval resolution in right basilar infiltrate and effusion since the comparison exam over 1 month ago Pleural spaces: Normal-no effusions or pneumothorax. Bones and soft tissues: Normal IMPRESSION: Complete interval resolution in right middle /lower lobe infiltrate and effusion since comparison exam over 1 month ago. Normal exam Dictated by: Bart Aparicio M.D. on 10/17/2024 at 13:13 Approved by: Bart Aparicio M.D. on 10/17/2024 at 13:14
== END ==
PROVIDERS: PCP Family Medicine; Referring Provider Family Medicine; Visit Provider Family Medicine
DX: J18.9 Pneumonia, unspecified organism (principal); J91.8 Pleural effusion in other conditions classified elsewhere; J45.990 Exercise induced bronchospasm
CPT/HCPCS: 71046

== ENCOUNTER → 2025-02-20 16:45 | Outpatient (CLI) | payer OTHER, SELFPAY ==
[2024-09-11 14:43] VITALS: BMI 21.6
[2025-02-20 17:08] LABS: Add Manual Diff / Slide Review NO; Hematocrit 35.5 % (36-46); Hemoglobin 12.4 g/dL (12.0-16.0); Lymphocytes Absolute Auto 1400 /uL (1100-4500); Mean Corpuscular HGB Conc 34.9 % (30-36); Mean Corpuscular Hemoglobin 30.0 PG (26-34); Mean Corpuscular Volume 85.9 fL (80-100); Platelet Count 194 X10^3/uL (150-400)
[2025-02-20 17:13] LABS: Appearance Urine UA CLEAR; Bilirubin Urine UA NEGATIVE (NEGATIVE); Color Urine UA YELLOW; Glucose Urine UA NEGATIVE (Negative); Ketones Urine UA NEGATIVE (NEGATIVE); Leukocyte Esterase Urine UA NEGATIVE (NEGATIVE); Nitrite Urine UA NEGATIVE (Negative); Occult Blood Urine UA NEGATIVE (Negative); Protein Urine UA NEGATIVE (Negative); Specific Gravity Urine UA 1.020 (1.000-1.035); Urobilinogen Urine UA 0.2 E.U./dL (0.2)
[2025-02-20 17:19] LABS: pH Urine UA 6.0 (4.5-8.0)
[2025-02-21 15:12] LABS: Hepatitis B Surface Antigen NEGATIVE s/c (NEGATIVE)
[2025-02-21 15:44] LABS: HIV 1 & 2 Ab/Ag 4th Gen Combo NEGATIVE (NEGATIVE); Hep C Virus Ab w/Reflex Quant NEGATIVE s/c (NEGATIVE)
== END ==
PROVIDERS: PCP Family Medicine; Referring Provider Family Medicine; Visit Provider Family Medicine
DX: Z34.00 Encounter for supervision of normal first pregnancy, unspecified trimester (principal)
CPT/HCPCS: 36415; 80055; 81003; 86787; 86803; 86850; 86900; 86901; 87086; 87389

== ENCOUNTER → 2025-03-08 12:15 | Outpatient (CLI) | payer OTHER, SELFPAY ==
[2024-09-11 14:43] VITALS: BMI 21.6
[2025-03-08 13:33] LABS: Natera Collection Specimen Collected
== END ==
PROVIDERS: PCP Family Medicine; Referring Provider Family Medicine; Visit Provider Family Medicine
DX: Z34.01 Encounter for supervision of normal first pregnancy, first trimester (principal); Z34.00 Encounter for supervision of normal first pregnancy, unspecified trimester; Z84.81 Family history of carrier of genetic disease
CPT/HCPCS: 36415

== ENCOUNTER → 2025-04-25 12:46 | Outpatient (CLI) | payer OTHER, SELFPAY ==
[2024-09-11 14:43] VITALS: BMI 21.6
--- NOTE | 2025-04-25 12:47 | DI.US.S_ITS ---
PROCEDURE: US OB >= 14 WEEKS FETUS INDICATIONS: anatomy OUTSIDE/PRIOR DATING DATA: Working AV: 09/13/2024 TECHNIQUE: Real-time scanning was performed of the fetus, with image documentation and biometric measurements. Endovaginal scanning: Not performed COMPARISON: None. FINDINGS: General: A single living intrauterine gestation is present. Presentation: Variable. Placenta: Placental position is posterior , without previa. Amniotic fluid index: 12.5 cm, normal range is 5-24 cm. Single deepest vertical pocket is 3.5 cm. heart rate: 145 beats per minute. Maternal cervical canal: 4.0 cm long. Normal lower limit is 2.5 cm. biometrics: Biparietal diameter: 4.6 cm, 19 weeks 5 days Head circumference: 17 cm, 19 weeks 4 days Abdominal circumference: 15.3 cm, 20 weeks 4 days Femur length: 3.1 cm, 19 weeks 3 days Clinically estimated gestational age: 19 weeks 1 day Composite gestational age from present scan: 19 weeks 6 days Estimated weight and percentile: 324 g, 89 percentile Anatomic survey: Neuro: Ventricles are non-dilated at less than 10 mm. Cisterna magna is normal at 3-11 mm. Cerebellum is normal in size and morphology. Nuchal skin fold: Normal at less than 6 mm between 14-21 weeks gestational age. Face: Nose and lips, facial profile are normal. Spine: No evidence for spina bifida. Heart: 4-chambered heart is present, with normal ventricular outflow tracts. Diaphragm: Diaphragm is intact. Stomach: Left-sided stomach is present. Kidneys: No hydronephrosis. Normal is less than 5 mm in 2nd trimester, less than 7 mm in 3rd trimester. Cord: 3-vessel cord has orthotopic insertion. Bladder: Normal in size. Extremities: All 4 extremities identified. IMPRESSION: Single living intrauterine at 19 weeks 1 day, AV of 09/13/2024. Estimated weight of 324 g, 89 percentile. Normal anatomy survey. We strive to produce accurate, complete, and clear reports of imaging services. To assist us in improving patient care, this report was composed using standard report templates and voice recognition software. Therefore, it may contain abnormal punctuation, insertions and/or omissions. Occasional wrong-word or sound-alike substitutions may occur. Though we review the report and make efforts to correct it, we do recommend that the report be read carefully in proper context to recognize any text inaccuracies. Dictated by: Benjie Ordoñez M.D. on 04/26/2025 at 13:27 Approved by: Benjie Ordoñez M.D. on 04/26/2025 at 13:29
== END ==
LOC: US 12:47
PROVIDERS: PCP Family Medicine; Referring Provider Family Medicine; Visit Provider Family Medicine
DX: Z34.02 Encounter for supervision of normal first pregnancy, second trimester (principal); Z3A.19 19 weeks gestation of pregnancy
CPT/HCPCS: 76811